=== PATIENT | male | born 1965 | race Caucasian/White ===

== ENCOUNTER 2022-06-17 22:36 | Emergency (ER) | payer OTHER ==
[2022-06-17 22:50] VITALS: BP 147/97
[2022-06-17 22:54] LABS: BASOPHILS % (AUTO) 1.2 % (0.0-5.0); EOSINOPHILS % (AUTO) 3.5 % (0.0-8.0); HEMATOCRIT 46.2 % (42-54); LYMPHOCYTES % (AUTO) 27.9 % (21.0-51.0); MEAN CORPUSCULAR HEMOGLOBIN 26.9 pg (27.0-33.0); MEAN CORPUSCULAR HGB CONC 32.7 g/dL (32.0-36.0); MEAN CORPUSCULAR VOLUME 82.2 fL (79-99); NEUTROPHILS % (AUTO) 56.1 % (40.0-77.0); PLATELET COUNT (AUTO) 330 K/uL (130-400); RED BLOOD CELL COUNT(AUTO) 5.62 MIL/uL (4.50-6.20); RED CELL DISTRIBUTION WIDTH 14.2 % (11.0-15.5); WHITE BLOOD COUNT (AUTO) 9.2 K/uL (4.8-10.8)
[2022-06-17] MEDS ORDERED: KETOROLAC 30MG VIAL (30MG/ML) ONE (22:59)
[2022-06-17] MEDS ORDERED: KETOROLAC 30MG VIAL (30MG/ML) IM ONE (23:00)
[2022-06-17 23:02] LABS: CREATININE 1.4 mg/dL (0.5-1.5); POTASSIUM 3.9 mmol/L (3.5-5.1)
[2022-06-17 23:04] LABS: INR 0.97 (0.85-1.15); PROTHROMBIN TIME 10.6 SEC (9.6-11.6)
[2022-06-17 23:05] LABS: PARTIAL THROMBOPLASTIN TIME 27.1 SEC (26.3-35.5)
[2022-06-17 23:07] LABS: ALBUMIN 4.2 g/dL (3.5-5.0); TOTAL PROTEIN, SERUM 8.3 g/dL (6.0-8.3)
[2022-06-17] MEDS ORDERED: CYCL10TA16 PO (23:38)
[2022-06-17] MEDS ORDERED: IBUP-2070 PO (23:38)
== END 2022-06-18 00:05 | disposition home or self-care (01) ==
LOC: EDH 22:36
DX: S16.1XXA Strain of muscle, fascia and tendon at neck level, initial encounter (principal); S09.90XA Unspecified injury of head, initial encounter; Z79.1 Long term (current) use of non-steroidal anti-inflammatories (NSAID); Z79.899 Other long term (current) drug therapy; Z91.012 Allergy to eggs; V49.9XXA Car occupant (driver) (passenger) injured in unspecified traffic accident, initial encounter; Y93.89 Activity, other specified; Y92.410 Unspecified street and highway as the place of occurrence of the external cause; Y99.8 Other external cause status
CPT/HCPCS: 99285; 70450; 80053; 85025; 85610; 85730; 36415; 72125; 96372; J1885

== ENCOUNTER → 2024-04-09 | Outpatient (CLI) | payer OTHER ==
[~2024-04-09] MED LIST: CYCL10TA16 PO; IBUP-2070 PO
--- NOTE | 2024-04-09 16:42 | HMCIMG ---
NM BONE SCAN WHOLE BODY REASON: C61. COMPARISON: None TECHNIQUE: Bone scan was performed with 25 mCi of technetium MDP through intravenous route. FINDINGS: Degenerative changes are seen with increased activities involving the shoulders, knees, hips, ankles and wrists bilaterally. No scintigraphic evidence of bone metastases is seen. IMPRESSION: DJD. No scintigraphic evidence of bone metastases is seen.
== END | disposition home or self-care (01) ==
LOC: RAH 10:55
PROVIDERS: ATTEND Internal Medicine
DX: C61 Malignant neoplasm of prostate (principal); M15.8 Other polyosteoarthritis
CPT/HCPCS: 78306; A9503